=== PATIENT | male | born 1990 | race Caucasian/White ===

== ENCOUNTER 2019-09-15 11:20 | Emergency (ER) | payer OTHER, BC ==
[2019-09-15] MEDS ORDERED: Lidocaine 1% 10 ML MDV INJECT ONE (11:40)
--- NOTE | 2019-09-15 11:41 | EDM.PDOC ---
<Brooks Manzo - Last Filed: 09/15/19 11:59> ED HPI GENERAL MEDICAL PROBLEM - General Chief Complaint: Upper Extremity Injury/Pain Stated Complaint: CUT ELBOW AT WORK Time Seen by Provider: 09/15/19 11:39 Source of Information: Reports: Patient History Limitations: Reports: No Limitations - History of Present Illness INITIAL COMMENTS - FREE TEXT/NARRATIVE: Patient is a 29 year old male with no past medical history who presented today after being hit by pipe at work this morning. The patient noted a open laceration on his right medial elbow, which he states he could visualize his bone. He also notes some pain with motion of the arm, and localizes pain to the medial elbow. The bleeding is now controlled with pressure. The patient does state that he also had blunt trauma to the right buttock as well but denies any laceration or pain. The patient was wearing multiple layers when the injury occurred. He did initially present to the walk in clinic at [facility], where he received a tetanus shot prior to being sent to the ED. The patient has not received pain medication or had images taken. Onset: Today Onset Date: 09/15/19 Duration: Hour(s): Location: Reports: Upper Extremity, Right - Related Data Allergies Allergy/AdvReac Type Severity Reaction Status Date / Time amoxicillin Allergy Rash Verified 09/15/19 11:32 Home Meds: Home Meds . [No Known Home Meds] 09/15/19 [History] Review of Systems - Review of Systems Review Of Systems: See Below Ears: Reports: No Symptoms Nose: Reports: No Symptoms Mouth/Throat: Reports: No Symptoms Respiratory: Reports: No Symptoms Cardiovascular: Reports: No Symptoms GI/Abdominal: Reports: No Symptoms Musculoskeletal: Reports: Arm Pain (Medial elbow, in addition to stiffness of the elbow) Skin: Reports: Other (Open laceration approximately 1 cm by .5 cm on the right medial elbow with surrounding swelling) Neurological: Reports: No Symptoms ED EXAM, GENERAL - Physical Exam Exam: See Below Exam Limited By: No Limitations General Appearance: Alert, WD/WN, No Apparent Distress Extremities: Arm Pain, Limited Range of Motion, Other (Swelling of the medial elbow with decreased ROM. Full supination and pronation, pain with flexion of biceps muscle. ) Neurological: Alert, Oriented, CN II-XII Intact, Normal Cognition Psychiatric: Normal Affect, Normal Mood Skin Exam: Wound/Incision (Approximately 1 x .5 cm deep laceration to the medial elbow with surrounding hematoma. Active but controlled bleeding) Course - Vital Signs Last Recorded V/S: Last Vital Signs Temp 36.6 C 09/15/19 11:27 Pulse 70 09/15/19 11:27 Resp 20 09/15/19 11:27 BP 125/90 09/15/19 11:27 Pulse Ox 97 09/15/19 11:27 - Orders/Labs/Meds Meds: Medications Discontinued Medications Generic Name Dose Route Start Last Admin Trade Name Barbara PRN Reason Stop Dose Admin Lidocaine HCl 10 ml 09/15/19 11:40 09/15/19 12:10 Xylocaine 1% INJECT 09/15/19 11:41 Not Given ONETIME ONE - Re-Assessments/Exams Free Text/Narrative Re-Assessment/Exam: 09/15/19 11:59 Patient got instructions from his insurance company to see Occupational Health instead of receiving care in the ED. The patient left AMA. Departure - Departure Disposition: Eloped Clinical Impression: Contusion of right elbow, initial encounter Laceration of elbow, right Qualifiers: Encounter type: initial encounter Qualified Code(s): S51.011A - Laceration without foreign body of right elbow, initial encounter - Discharge Information Referrals: PCP,None [Primary Care Provider] - Forms: ED Department Discharge Additional Instructions: Patient got a phone call from his general office of employment and they indicated that they wanted him seen and treated at the occupational health clinic and not seen through the ED. The x-ray that had been ordered on his right elbow was canceled and his wound was wrapped in sterile Blaire and he will attend the occupational health clinic. Discharge from the ED with no formal treatment. <Ryland Levine - Last Filed: 09/15/19 12:21> ED HPI GENERAL MEDICAL PROBLEM - General Source of Information: Reports: Patient History Limitations: Reports: No Limitations Right Elbow Pain Score (Numeric/FACES): 7 Past Medical History - Past Health History Medical/Surgical History: Denies Medical/Surgical History - Past Surgical History Musculoskeletal Surgical History: Reports: Other (See Below) Other Musculoskeletal Surgeries/Procedures:: knee surgery as a kid Social & Family History - Tobacco Use Smoking Status *Q: Never Smoker - Caffeine Use Caffeine Use: Reports: Coffee, Soda - Recreational Drug Use Recreational Drug Use: No Course - Orders/Labs/Meds Meds: Medications Discontinued Medications Generic Name Dose Route Start Last Admin Trade Name Freq PRN Reason Stop Dose Admin Lidocaine HCl 10 ml 09/15/19 11:40 09/15/19 12:10 Xylocaine 1% INJECT 09/15/19 11:41 Not Given ONETIME ONE Departure - Departure Time of Disposition: 12:00 Condition: Fair - Discharge Information *PRESCRIPTION DRUG MONITORING PROGRAM REVIEWED*: Not Applicable *COPY OF PRESCRIPTION DRUG MONITORING REPORT IN PATIENT SAQIB: Not Applicable
== END 2019-09-15 12:25 | disposition left against medical advice (07) ==
LOC: JD.ED 11:20
DX: S51.011A Laceration without foreign body of right elbow, initial encounter (principal); Z88.0 Allergy status to penicillin; W22.8XXA Striking against or struck by other objects, initial encounter; Y92.89 Other specified places as the place of occurrence of the external cause; Y99.0 Civilian activity done for income or pay
CPT/HCPCS: 99283

== ENCOUNTER 2019-09-21 04:57 | Emergency (ER) | payer OTHER, BC ==
--- NOTE | 2019-09-21 05:29 | EDM.PDOC ---
ED HPI GENERAL MEDICAL PROBLEM - General Chief Complaint: Laceration Stated Complaint: RIGHT ELBOW BLEEDING Time Seen by Provider: 09/21/19 05:20 Source of Information: Reports: Patient, Family History Limitations: Reports: No Limitations - History of Present Illness INITIAL COMMENTS - FREE TEXT/NARRATIVE: 21-year-old male presents to the ED for evaluation of bleeding from a laceration to the medial aspect of his right elbow. Patient reports that on September 15 he suffered blunt force trauma to the medial aspect of his right elbow while at work. He was struck by a piece of fiberglass and essentially was is his blunt trauma to this area. She had 4 shirts on and a car heart coat. There was no penetration through the material therefore blunt force trauma over a very prominent medial epicondyles resulted in a laceration in this area and injury. Initial evaluation was done at a roadside medical clinic. Apparently he did have an x-ray of the area and an x-ray was reported back to him by a physician in [place]. His wound was cleansed and Steri-Stripped closed. The case that early this morning the area broke open and was draining a large amount of blood. He still has very limited ability to fully flex his elbow and loss of about 8 extension as well. He has full pronation supination at the elbow. Onset: Sudden Onset Date: 09/15/19 (Early a.m.) Duration: Day(s):, Other (Wound opened up and is draining the blood.) Location: Reports: Upper Extremity, Right (Right medial elbow) Quality: Reports: Ache Severity: Moderate Improves with: Reports: Rest Worsens with: Reports: Movement (Especially flexion and extension at the elbow.) Context: Reports: Trauma (Blunt force trauma in the workplace caused initial injury September 15 a.m.). Denies: Activity, Exercise, Lifting, Sick Contact Associated Symptoms: Reports: No Other Symptoms Treatments SAF[employer]: Reports: Other (see below) (Motrin when necessary.) - Related Data Allergies Allergy/AdvReac Type Severity Reaction Status Date / Time amoxicillin Allergy Rash Verified 09/21/19 05:06 Home Meds: Home Meds . [No Known Home Meds] 09/15/19 [History] Past Medical History - Past Health History Medical/Surgical History: Denies Medical/Surgical History - Past Surgical History Musculoskeletal Surgical History: Reports: Other (See Below) Other Musculoskeletal Surgeries/Procedures:: knee surgery as a kid Social & Family History - Caffeine Use Caffeine Use: Reports: Coffee, Soda - Living Situation & Occupation Living situation: Reports: Occupation: Employed ED ROS GENERAL - Review of Systems Review Of Systems: See Below (s) Constitutional: Reports: No Symptoms HEENT: Reports: No Symptoms Respiratory: Reports: No Symptoms Cardiovascular: Reports: No Symptoms Endocrine: Reports: No Symptoms GI/Abdominal: Reports: No Symptoms : Reports: No Symptoms Musculoskeletal: Reports: Other (In the ED 10 this morning due to bleeding from wound right medial elbow that occurred September 15.) Skin: Reports: Other ( Suffered blunt force, to the medial aspect of his right elbow September 15. there is marked ecchymoses of the proximal forearm and distal arm medially. He had a laceration or deep abrasion in this area that was Steri- Stripped and opened up and drained blood this morning. ) Neurological: Reports: No Symptoms Psychiatric: Reports: No Symptoms Hematologic/Lymphatic: Reports: No Symptoms Immunologic: Reports: No Symptoms ED EXAM, SKIN/RASH Exam: See Below Exam Limited By: No Limitations General Appearance: Alert, WD/WN, No Apparent Distress, Other (Vital signs are all normal.) Extremities: Other (Examination of the right elbow shows yellow ecchymoses proximal third of the medial forearm and similarly proximal distal aspect of the right humerus. He has very prominent medial epicondyles which was struck apparently by blunt force trauma from a fiberglass track. He suffered a deep abrasion over the epicondyles due to shear force injury. He was seen initially at a roadside [facility] medical clinic. An x-ray apparently was done of the area and no fractures are identified. His wound was cleansed and Steri-Stripped closed. He has been slowly regaining range of motion although he still lacks about 8 of extension and 10 of flexion at the right elbow. He has full pronation supination. Distal pulses to the wrist. There is an area that was bleeding from the right medial elbow over the epicondyles. It appears to be a deep abrasion. However the wound will have to be cleansed so I can inspect it further.) Neurological: Alert, Oriented, CN II-XII Intact, Normal Cognition, Normal Gait Psychiatric: Normal Affect, Normal Mood Skin: Warm, Dry, Other (There is a deep abrasion or laceration about a centimeter in length over the medial epicondyle of the elbow.) Location, Skin: Upper Extremity, Right (Right medial epicondyle of the elbow.) Course - Vital Signs Last Recorded V/S: Last Vital Signs Temp 36.0 C 09/21/19 05:06 Pulse 58 L 09/21/19 05:06 Resp 18 09/21/19 05:06 BP 117/61 09/21/19 05:06 Pulse Ox 99 09/21/19 05:06 - Orders/Labs/Meds Orders: Active Orders 24 hr Category Date Time Status Elbow Min 3V Rt [CR] Stat Exams 09/21/19 05:24 Taken - Radiology Interpretation Free Text/Narrative:: 21-year-old male presents the ED for evaluation of bleeding from the wound that he has of his right medial epicondyle of the elbow. Patient was struck by a fiberglass track and suffered severe force injury to his right medial elbow on September 15 a.m. Seen in the roadside clinic close to [place] and apparently x- rays of the area were obtained which did not show any fractures. His wound was cleansed and then Steri-Stripped closed. Patient has marked ecchymoses of the proximal medial forearm and distal medial humerus on the right side. He has full pronation supination at the elbow but lacks full extension and full flexion at the elbow due to pain. The wound appears to be a deep puncture-like wound or abrasion that was opened up from sheer force injury. Plan I'm going to x-ray his right elbow. We'll then have a better look at his wound and see how to best manage this. - Re-Assessments/Exams Free Text/Narrative Re-Assessment/Exam: 09/21/19 05:48 x-rays of the right elbow do reveal a hairline fracture in the proximal ulna medial elbow. The condyle is okay. The fracture is undisplaced and very difficult to find but is present on 2 views out of 4 of the right elbow. This is reason the patient can't fully extend or flex his elbow at this time. At this point in time he is going to need to work but not using his right arm. He is willing to baby it along until it heals which will be a full 6 weeks until it is healed solidly. Antony wrap and wound cleansed provided. He did not want to be placed in a splint or sling at this time His wound is about a centimeter in length. It is an avulsion type injury or sheer force injury and I see no benefit to suturing at this point time. He will daily cleanse the wound and apply topical antibiotic. The drainage is some fresh blood but some old blood that was underneath the skin. He will use bacitracin topical Band-Aid and ANTONY wrap daily. No follow-up is required unless the wound becomes infected. Departure - Departure Time of Disposition: 05:51 Disposition: Home, Self-Care 01 Condition: Fair Clinical Impression: Wound dehiscence, Contusion of right elbow, initial encounter Fracture of proximal ulna, closed Qualifiers: Encounter type: initial encounter Fracture morphology: other fracture Laterality: right Qualified Code(s): S52.091A - Other fracture of upper end of right ulna, initial encounter for closed fracture Laceration of elbow, right Qualifiers: Encounter type: initial encounter Qualified Code(s): S51.011A - Laceration without foreign body of right elbow, initial encounter - Discharge Information *PRESCRIPTION DRUG MONITORING PROGRAM REVIEWED*: Not Applicable *COPY OF PRESCRIPTION DRUG MONITORING REPORT IN PATIENT SAQIB: Not Applicable Instructions: Ulnar Fracture With Rehab-SportsMed, Elbow Contusion, Easy-to- Read, Wound Care, Adult, Elbow Contusion, Laceration Care, Adult, [id number] Referrals: PCP,None [Primary Care Provider] - Forms: ED Department Discharge Additional Instructions: Evaluation in the emergency room this morning in regards to an injury sustained in the workplace on September 15 a.m. By history you are struck by a large fiberglass panel with blunt force trauma to the right medial elbow. His resulted in shear force injury to the medial elbow called the epicondyles. Yours are fairly prominent. This resulted in a laceration which was fairly superficial over the medial epicondyle bone of the elbow. Initially cleansed and Steri-Stripped closed. It recently open and is draining blood again. Inspection of the wound it is healing and is relatively superficial at this time. I see no benefit into closing it with sutures at this point time. Treatment is to be daily cleanse the wound with soap and water and then topical anabolic such bacitracin or Polysporin and bandage and rapid to keep some pressure on it to keep it from bleeding. X-rays of the right elbow were repeated this morning since I did not have availability to look at previous x- rays done elsewhere. There is in fact a hairline fracture undisplaced fracture of the proximal aspect of the right ulna bone which is right where you suffered direct trauma. This fracture will heal well on its own over the next 4 weeks. As we discussed before meals little benefit to place again in a splint at this point time as you are already keeping it flexed and in position of comfort and not using it in the workplace. He'll take about 3 weeks before the elbow is no longer painful or sore and you regain full range of motion. He will not be completely healed for 6 weeks post injury. Return to medical care if any signs of infection occur such as redness obvious swelling, or obvious pus. - My Orders Last 24 Hours: My Active Orders 09/21/19 05:24 Elbow Min 3V Rt [CR] Stat - Assessment/Plan Last 24 Hours: My Active Orders 09/21/19 05:24 Elbow Min 3V Rt [CR] Stat
--- NOTE | 2019-09-21 08:51 | CR ---
Right elbow: Four views of the right elbow were obtained. Comparison: No previous elbow study. Joint spaces are preserved. Joint effusion is seen. No definite fracture is appreciated although a poorly seen and nondisplaced fracture is possible because of the joint effusion. No additional abnormality is seen. Impression: 1. Joint effusion without definite fracture. Difficult to exclude nonvisualized and nondisplaced fracture given the joint effusion. Note: If patient remains symptomatic, recommend follow-up study to 14 days. Diagnostic code #3
== END 2019-09-21 06:06 | disposition home or self-care (01) ==
LOC: JD.ED 04:57
DX: T81.33XA Disruption of traumatic injury wound repair, initial encounter (principal); S52.091A Other fracture of upper end of right ulna, initial encounter for closed fracture; Z88.0 Allergy status to penicillin; W22.8XXA Striking against or struck by other objects, initial encounter; Y92.89 Other specified places as the place of occurrence of the external cause; Y99.0 Civilian activity done for income or pay
CPT/HCPCS: 73080-26-RT; 73080-RT; 99283; 99283-25